=== PATIENT | female | born 1980 | race Caucasian/White ===

== ENCOUNTER 2017-10-06 21:50 | Emergency (ER) | payer SELFPAY ==
[2017-10-06] MEDS ORDERED: METOPROLOL TARTRATE 5 MG/5 ML VIAL IVP ONE ×2 (22:22→23:25)
--- NOTE | 2017-10-06 22:31 | ED Physician Documentation ---
General Adult - HISTORIAN Historian: patient - HPI Stated Complaint: HTN, pain in right neck arm and side, meredith Chief Complaint: General Adult Onset: hours Timing: still present Severity: moderate Further Comments: yes (Pt is a 36 yo female with Polycystic Kidney Disease who presents with HTN BP 204/89 and with pain in the R side of her neck that radiates down her R arm. Pain is achy, "not like a sore throat." Pt states that she has been having various symptoms all week, including blurry vision and nausea. Pt has a stong family hx of CVA's in family members who also had polycystic kidney dz, including her father, who in his 30's, and her father 's two siblings. Pt's daughter also has polycystic kidney disease. Pt has hx hypertenion in . She takes no medications. She "usually does not get headaches.") - ROS CONST: no problems EYES/ENT: none CVS/RESP: none GI/: nausea MS/SKIN/LYMPH: none NEURO/PSYCH: headache, other (pain in R arm) - PAST HX Past History: other (BTl, hysterectomy) Other History: other (Polycystic Kidney Dz) Surgeries/Procedures: hysterectomy Allergies/Adverse Reactions: Allergies Allergy/AdvReac Type Severity Reaction Status Date / Time No Known Drug Allergies Allergy Verified 10/06/17 22:13 Home Medications: Ambulatory Orders Medication Instructions Recorded Metoprolol Tartrate [Lopressor] 50 mg PO BID #60 tablet 10/07/17 - SOCIAL HX Smoking History: cigarettes - FAMILY HX Family History: Yes (Polycystic Kidney dz, CVA, father and his siblings) - REVIEWED ASSESSMENTS Nursing Assessment Reviewed: Yes Vitals Reviewed: Yes Progress - Progress Progress: CT head: negative intracranial study. Metoprolol 5 mg IV x 2 Nitro paste 1 " Metoprolol 50 mg po Hydralazine 10 mg IV BP 146/80 f/u Dr. Mock, [facility] (Tel. [phone]), for aneurysm screening in pt with PKA and fam hx CVA's. Rx Metoprolol 50 mg. Take one tablet by mouth every 12 hrs. Follow up with Neurology Clinic, Dr. Mock Tel. [phone] about screening testing for patients with Polycystic Kidney Disease and family history of stroke. Call [facility] to establish with a local primary provider, and follow up later in the week. Monitor your blood pressure. Return to ER if you blood pressure readings are very high or if you have new symptoms or concerns. - EKG/XRAY/CT EKG: NSR (HR=74; non-specific T-wave abnormality) ED Results Lab/Radiology - Orders Orders: ED Orders Category Date Time Status Place IV Lock 1T Care 10/06/17 22:18 Active CBC/PLATELET/DIFF Routine Lab 10/06/17 22:18 Ordered CMP Routine Lab 10/06/17 22:18 Ordered CREATINE KINASE Routine Lab 10/06/17 22:18 Ordered TROPONIN I (cTnI) Stat Lab 10/06/17 22:18 Ordered Metoprolol Tartrate [Toprol] Med 10/06/17 22:22 Discontinued 5 mg IVP NOW ONE Oxygen Daily Oxygen 10/06/17 22:30 Ordered General Adult Physical Exam - PHYSICAL EXAM GENERAL APPEARANCE: anxiety EENT: eye inspection normal, pharynx normal NECK: normal inspection, supple RESPIRATORY: no resp distress, chest non-tender, breath sounds normal CVS: reg rate & rhythm, heart sounds normal ABDOMEN: soft, no organomegaly, normal bowel sounds BACK: normal inspection, no CVA tenderness SKIN: warm/dry, normal color EXTREMITIES: non-tender, normal range of motion, no edema NEURO: oriented X3, CN's nml as tested, motor nml, sensation nml Discharge Clincal Impression: Hypertension Prescriptions: Metoprolol Tartrate [Lopressor] 50 mg PO BID #60 tablet Referrals: Primary Doctor,No [Primary Care Provider] - Condition: Stable Disposition: 01 HOME, SELF-CARE Decision to Admit: NO Decision Time: 03:30
[2017-10-06] MEDS ORDERED: METOPROLOL TARTRATE 50 MG TABLET PO ONE (23:07)
[2017-10-07] MEDS ORDERED: NITROGLYCERIN 2% 1GM OINT PACKET...G. TD ONE ×2 (00:11→00:13)
[2017-10-07 00:25] LABS: eGFR (African) > 60; eGFR (Non-African) > 60
[2017-10-07 00:34] LABS: BASOPHILS % 0.8 (0.0-1.5); EOSINOPHILS % 2.8 % (0.0-6.8); MEAN CORPUSCULAR HEMOGLOBIN 29.9 pg (28.0-34.0); MEAN CORPUSCULAR VOLUME 89.4 fl (80.0-100.0); MONOCYTES % 4.1 % (0.0-11.0); NEUTROPHILS # 5.4 # k/uL (1.4-7.7)
[2017-10-07] MEDS ORDERED: LORazepam 2 MG/ML VIAL IVP ONE (00:52)
[2017-10-07] MEDS ORDERED: hydrALAZINE HCL 20 MG/1 ML IVP ONE ×2 (01:36→01:50)
--- NOTE | 2017-10-07 01:48 | Diagnostic Imaging Report ---
[facility] [id number] [facility] [address] [place], [place]. [address] Report Submission Date: Oct 07, 2017 1:45:08 AM HEMATOLOGY ONCOLOGY CONSULTANT Patient Study Name: OPAL EATON Date: Oct 07, 2017 1:25:02 AM HEMATOLOGY ONCOLOGY CONSULTANT Modality Type: CT\SR Gender: F Description: CT BRAIN W/O CONTRAST : 78 Institution: [facility] Physician: LUPE MATTA Head CT without contrast Clinical history: PATIENT STATES BLURRED VISION, PAIN IN RIGHT ARM, HYPERTENSION. HISTORY OF KIDNEY DISEASE. Technique: CT examination of the brain was performed in contiguous axial slices without the use of contrast. Sagittal and coronal reconstructions are performed by the technologist. Findings: The 4th ventricle lies in a normal midline position. The ventricles and sulci are within normal limits. There is no hypodense or hyperdense mass or intracranial hemorrhage. Mucosal thickening is present in the maxillary and ethmoid sinuses. There is partial opacification of mastoid air cells bilaterally. Impression: 1. Chronic paranasal sinus changes. 2. Partial opacification of the mastoid air cells. 3. Negative intracranial study. Electronically signed on Oct 07, 2017 1:45:08 AM HEMATOLOGY ONCOLOGY CONSULTANT by: Farzad QUINONES
[2017-10-07 03:26] VITALS: BP 146/80
== END 2017-10-07 03:13 | disposition home or self-care (01) ==
LOC: SUPCPDRO 21:50 → ED 21:50
DX: I10 Essential (primary) hypertension (principal)
CPT/HCPCS: 70450; 80053; 82550; 84484; 85025; 85610; 93005; 96374; 96375; 96376; 99283; J2060; J3490; S1016

== ENCOUNTER 2019-07-08 17:43 | Emergency (ER) | payer SELFPAY ==
--- NOTE | 2019-07-08 17:51 | ED Physician Documentation ---
Female Urogenital Problems - HISTORIAN Historian: patient - HPI Stated Complaint: urinating blood Chief Complaint: Female Urogenital Problems Onset: days ago (3) Location of Pain: other (no pain she does have some pressure lower middle abdomen ) Further Comments: yes (She states three days ago she started to void blood. NO pain. She has had some "aches" on left lower back and now mid lower abdomen "Feels sore" No fever. NO urinary urgency or pain. No change in any vaginal symptoms.) - Associated Symptoms Urinary Symptoms: blood in urine. denies: frequent urination, discomfort w/ urination, burning w/ urination, urgency w/ urination, pain w/ urination - ROS CONST: none GI/: denies: nausea, vomiting, decreased appetite CVS/RESP: none EYES/ENT: none NEURO/PSYCH: none MS/SKIN/LYMPH: none - PAST HX Past History: other (polycystic kidney disease ) Immunizations: UTD Allergies/Adverse Reactions: Allergies Allergy/AdvReac Type Severity Reaction Status Date / Time No Known Drug Allergies Allergy Verified 07/08/19 18:14 - SOCIAL HX Smoking History: non-smoker Alcohol Use: none Drug Use: none - FAMILY HX Family History: none - VITAL SIGNS Vital Signs: Vital Signs Temp Pulse Resp BP Pulse Ox 146/80 10/07/17 03:23 - REVIEWED ASSESSMENTS Nursing Assessment Reviewed: Yes Vitals Reviewed: Yes Progress - Progress Progress: Discussed lab findings: she has no fever, she has no critical lab values. She has mild bladder pain with palpation. She needs to see a covering machine operator although she reports she has no insurance DG Female Urogenital Problems - EXAM General Appearance: no acute distress, alert EENT: eye inspection normal, no signs of dehydration Neck: nml inspection Respiratory: no resp. distress, breath sounds nml CVS: reg rate & rhythm, heart sounds normal Abdomen: soft, non-tender, tenderness (bladder palpation ) Back: non-tender, painless ROM. No: CVA tenderness Skin: color nml, no rash Extremities: non-tender Neuro: oriented X3 Discharge Clincal Impression: UTI (urinary tract infection) Qualifiers: Urinary tract infection type: site unspecified Hematuria presence: with hematuria Qualified Code(s): N39.0 - Urinary tract infection, site not specified Referrals: Divya Cobb MD [Primary Care Provider] - 2 Days Comments: 1. Macrobid 100 mg take 1 by mouth twice daily x 10 days 2. Increase fluids 3. Follow up with PCP in am 4. Return to ER for any increased concerns Condition: Stable Disposition: 01 HOME, SELF-CARE Decision to Admit: NO Date of Decison to Admit: 07/08/19 Decision Time: 18:58
[2019-07-08 18:35] LABS: APPEARANCE,URINE TURBID (CLEAR); COLOR,URINE RED (YELLOW); OCCULT BLOOD,URINE 3+ (NEGATIVE); PH URINE 5.5 (5.0 - 8.0)
[2019-07-08 18:38] LABS: BASOPHILS % 0.6 % (0.0-1.5); NEUTROPHILS # 7.2 # k/uL (1.4-7.7)
[2019-07-08] MEDS: 0.9 % SODIUM CHLORIDE 1,000 ML IV ONE (18:44)
[2019-07-08 18:47] LABS: eGFR (Non-African) > 60
[2019-07-08] MEDS ORDERED: NITROFURANTOIN MONO/MACRO 100 MG CAPSULE PO ONE (19:02)
[2019-07-08 19:51] VITALS: BP 185/84
== END 2019-07-08 19:28 | disposition home or self-care (01) ==
LOC: ED 17:43
DX: N39.0 Urinary tract infection, site not specified (principal); R31.9 Hematuria, unspecified; B96.89 Other specified bacterial agents as the cause of diseases classified elsewhere
CPT/HCPCS: 36415; 80053; 81002; 85025; 87086; 96360; 99283; 99284; J7030; S1016